=== PATIENT | male | born 1985 | race Caucasian/White ===

== ENCOUNTER 2024-01-19 21:48 | Emergency (ER) | payer SELFPAY ==
[~2024-01-19] VITALS: Ht 180.3 cm; Wt 106.6 kg
[2024-01-19 22:05] VITALS: BP_SYST 159; PULSE 112; RESP 18; TEMP 98.5; O2SAT 97
[2024-01-19 22:36] LABS: BASOPHILS # (AUTO) 0.3 K/uL (0.0-0.2); EOSINOPHILS # (AUTO) 0.1 K/uL (0.0-0.4); EOSINOPHILS % (AUTO) 0.5 % (0.0-4.0); HEMATOCRIT 47.7 % (36-54); HEMOGLOBIN 16.8 g/dL (14.0-18.0); LYMPHOCYTES # (AUTO) 1.5 K/uL (1.0-5.5); LYMPHOCYTES % (AUTO) 13.9 % (20.5-51.5); MEAN CORPUSCULAR HEMOGLOBIN 31 pg (27-31); MEAN CORPUSCULAR HGB CONC 35 % (32-36); MEAN CORPUSCULAR VOLUME 87 fL (79.0-98.0); MONOCYTES # (AUTO) 0.7 K/uL (0.0-1.0); MONOCYTES % (AUTO) 6.1 % (1.7-9.3); NEUTROPHILS # (AUTO) 8.4 K/uL (1.8-7.7); NEUTROPHILS % (AUTO) 76.5 % (40.0-70.0); PLATELET COUNT (AUTO) 254 K/uL (130-430); RED BLOOD CELL COUNT(AUTO) 5.49 MIL/uL (4.2-6.2); RED CELL DISTRIBUTION WIDTH 15.2 % (9.0-15.0)
[2024-01-19 22:47] LABS: CALCIUM 9.5 mg/dL (8.4-11.0); CREATININE 1.33 mg/dL (0.55-1.30); POTASSIUM 5.5 mmol/L (3.5-5.1)
[2024-01-20] MEDS: FAMOTIDINE 20 MG TABLET PO ONE (00:24)
[2024-01-20] MEDS: MAG-AL HYDROX/SIMETH 30 ML UDC PO ONE (00:24)
[2024-01-20 00:40] LABS: BILIRUBIN,URINE 1+ (NEGATIVE); CLARITY/URINE CLEAR (CLEAR); COLOR,URINE YELLOW (YELLOW); GLUCOSE,URINE NEGATIVE (NEGATIVE); KETONES,URINE 1+ (NEGATIVE); LEUKOCYTE ESTERASE ,URINE NEGATIVE (NEGATIVE); NITRITE, URINE NEGATIVE (NEGATIVE); PROTEIN URINE 3+ (NEGATIVE)
[2024-01-20 00:45] LABS: BACTERIA,URINE None Seen /HPF (None Seen); BLOOD, URINE TRACE (NEGATIVE); WBC,URINE 0-3 /HPF (0-3)
[2024-01-20] MEDS: ALBUTEROL SULFATE 0.083% 2.5 MG/3 ML VIAL.NEB INH ONE (02:33)
[2024-01-20] MEDS ORDERED: CALCIUM GLUCONATE 1 GM/10 ML VIAL ONE (02:40)
[2024-01-20] MEDS: CALCIUM GLUCONATE 1 GM in NS 100 ML IV ONE (02:53)
[2024-01-20] MEDS: NACL 0.9% 1,000 ML IV ONE (02:58)
[2024-01-20] MEDS: MORPHINE 4 MG INJ. 4 MG/ML VIAL IVP ONE (03:00)
[2024-01-20] MEDS: ONDANSETRON HCL 4 MG/2 ML VIAL IVP ONE (03:00)
[2024-01-20] MEDS: hydrALAZINE HCL 20 MG/ML VIAL IVP ONE (04:14)
[2024-01-20 04:56] LABS: CALCIUM 8.5 mg/dL (8.4-11.0); CREATININE 1.04 mg/dL (0.55-1.30); POTASSIUM 4.4 mmol/L (3.5-5.1)
[2024-01-20] MEDS: LABETALOL HCL 20 MG/4 ML CARTRIDGE IVP ONE (05:14)
[2024-01-20 05:45] VITALS: BP_SYST 148; PULSE 95; RESP 18; TEMP 98.6; O2SAT 93
== END 2024-01-20 05:45 | disposition home or self-care (01) ==
LOC: SED 21:48
DX: R10.11 Right upper quadrant pain (principal); R10.13 Epigastric pain; R03.0 Elevated blood-pressure reading, without diagnosis of hypertension; R11.0 Nausea; R00.0 Tachycardia, unspecified; F10.90 Alcohol use, unspecified, uncomplicated
CPT/HCPCS: 80048; 81001; 83690; 85025; 36415; 76705; 99285; 93005; 94640; 96365; 96375; J0610; J0360; J2405; J2270; 81000; 81015

== ENCOUNTER 2024-01-26 17:34 | Inpatient (IN) | payer MEDICAID ==
[~2024-01-26] VITALS: Ht 180.3 cm; Wt 106.6 kg
[2024-01-26 18:08] VITALS: BP_SYST 168; PULSE 116; RESP 18; TEMP 98.3; O2SAT 97
[2024-01-26] MEDS: KETOROLAC TROMETHAMINE 60 MG/2 ML VIAL IM ONE (19:36)
[2024-01-26 19:48] LABS: BLOOD, URINE 2+ (NEGATIVE); CLARITY/URINE CLEAR (CLEAR); COLOR,URINE YELLOW (YELLOW); GLUCOSE,URINE NEGATIVE (NEGATIVE); KETONES,URINE NEGATIVE (NEGATIVE); LEUKOCYTE ESTERASE ,URINE NEGATIVE (NEGATIVE); NITRITE, URINE NEGATIVE (NEGATIVE); PROTEIN URINE 3+ (NEGATIVE)
[2024-01-26 20:03] LABS: BILIRUBIN,URINE 1+ (NEGATIVE)
[2024-01-26 20:06] LABS: BACTERIA,URINE FEW /HPF (None Seen); RBC,URINE 0-3 /HPF (0-3); WBC,URINE 0-3 /HPF (0-3)
[2024-01-26 20:07] LABS: HYALINE CASTS, URINE 0-10 /LPF (None Seen); MUCUS,URINE None Seen /LPF (None Seen)
[2024-01-26] MEDS: LABETALOL HCL 20 MG/4 ML CARTRIDGE IVP ONE (20:32)
[2024-01-26] MEDS: METOPROLOL TARTRATE 25 MG TABLET PO ONE (20:32)
[2024-01-26] MEDS: KETOROLAC TROMETHAMINE 15 MG VIAL IVP ONE (20:52)
[2024-01-26 21:13] LABS: BASOPHILS # (AUTO) 0.1 K/uL (0.0-0.2); BASOPHILS % (AUTO) 0.7 % (0.0-2.0); EOSINOPHILS % (AUTO) 0.5 % (0.0-4.0); HEMATOCRIT 46.6 % (36-54); HEMOGLOBIN 15.8 g/dL (14.0-18.0); LYMPHOCYTES # (AUTO) 1.7 K/uL (1.0-5.5); LYMPHOCYTES % (AUTO) 18.3 % (20.5-51.5); MEAN CORPUSCULAR HEMOGLOBIN 30 pg (27-31); MEAN CORPUSCULAR HGB CONC 34 % (32-36); MEAN CORPUSCULAR VOLUME 87 fL (79.0-98.0); MONOCYTES # (AUTO) 0.5 K/uL (0.0-1.0); MONOCYTES % (AUTO) 5.9 % (1.7-9.3); NEUTROPHILS # (AUTO) 6.9 K/uL (1.8-7.7); NEUTROPHILS % (AUTO) 74.6 % (40.0-70.0); PLATELET COUNT (AUTO) 268 K/uL (130-430); RED BLOOD CELL COUNT(AUTO) 5.34 MIL/uL (4.2-6.2); RED CELL DISTRIBUTION WIDTH 15.3 % (9.0-15.0); WHITE BLOOD COUNT (AUTO) 9.3 K/uL (4.8-10.8)
[2024-01-26 21:42] LABS: ANION GAP 12 (5-15); CALCIUM 8.5 mg/dL (8.4-11.0); CARBON DIOXIDE 22 mmol/L (23-29); CHLORIDE 105 mmol/L (98-107); CREATININE 1.37 mg/dL (0.55-1.30); GFR AFRICAN AMERICAN 74 mL/min (>90); GLUCOSE 129 mg/dL (74-106); POTASSIUM 4.5 mmol/L (3.5-5.1); SODIUM SERUM 139 mmol/L (136-145); UREA NITROGEN, BLOOD 24 mg/dL (8-21)
[2024-01-26 21:45] LABS: GFR NON AFRICAN-AMERICAN 61 mL/min (>90)
[2024-01-26] MEDS ORDERED: ONDANSETRON HCL 4 MG/2 ML VIAL IVP PRN (22:15)
[2024-01-26] MEDS ORDERED: MAGNESIUM SULFATE 50 ML IV PRN (22:15)
[2024-01-26] MEDS ORDERED: MORPHINE 2 MG/ML INJ. SYRINGE IVP PRN ×2 (22:15)
[2024-01-26] MEDS: NACL 0.9% 1,000 ML IV SCH (22:15)
[2024-01-26] MEDS ORDERED: MUPIROCIN 2% TOPICAL OINTMENT 22 GM NS PRN (22:15)
[2024-01-26] MEDS ORDERED: DOCUSATE SODIUM 100 MG CAPSULE PO PRN (22:15)
[2024-01-26] MEDS ORDERED: POTASSIUM CHLORIDE 20 MEQ TABLET.ER PO PRN (22:15)
[2024-01-26 22:16] LABS: BARBITURATE, URINE NEGATIVE (NEG <=200); BENZODIAZEPINE, URINE NEGATIVE (NEG <=150); CANNABINOID, URINE NEGATIVE (NEG <=50); COCAINE, URINE NEGATIVE (NEG <=150); METHAMPHETAMINES SCREEN,URINE NEGATIVE (NEG <=500); OPIATE, URINE NEGATIVE (NEG <=100); PHENCYCLIDINE SCREEN,URINE NEGATIVE (NEG <=25); UR TRICYCLIC ANTIDEPRESSANTS NEGATIVE (NEG <=300); URINE AMPHETAMINE NEGATIVE (NEG <=500); URINE METHADONE NEGATIVE (NEG <=200); URINE OXYCODONE SCREEN NEGATIVE (NEG <=100)
[2024-01-26] MEDS: ACETAMINOPHEN 500 MG TABLET PO ONE (22:20)
[2024-01-26] MEDS: ASPIRIN 81 MG TABLET(ECOTRIN) PO ONE (22:20)
[2024-01-26] MEDS: ENOXAPARIN SODIUM 100 MG/ML SYRINGE SUBCUT ONE (22:23)
[2024-01-26] MEDS: NITROGLYCERIN 1 INCH (GM) OINT. TP ONE (22:24)
[2024-01-26] MEDS: FUROSEMIDE 40 MG/4 ML VIAL IVP ONE (22:25)
[2024-01-26] MEDS: NIFEdipine 30 MG TAB.ER.24 PO SCH (23:07)
[2024-01-26] MEDS: LORazepam 2 MG/ML VIAL IVP PRN (23:17)
[2024-01-27] VITALS (8 sets, daily range): BP systolic 120–165; PULSE 75–90; RESP 17–18; TEMP 96.4–97.9; O2SAT 95–99
[2024-01-27] MEDS: cloNIDine HCL 0.2 MG TABLET PO PRN (01:43)
[2024-01-27 05:26] LABS: BASOPHILS % (AUTO) 0.6 % (0.0-2.0); EOSINOPHILS % (AUTO) 0.3 % (0.0-4.0); HEMATOCRIT 43.8 % (36-54); HEMOGLOBIN 15.4 g/dL (14.0-18.0); LYMPHOCYTES # (AUTO) 1.9 K/uL (1.0-5.5); MEAN CORPUSCULAR HEMOGLOBIN 31 pg (27-31); MEAN CORPUSCULAR HGB CONC 35 % (32-36); MEAN CORPUSCULAR VOLUME 88 fL (79.0-98.0); MONOCYTES # (AUTO) 0.5 K/uL (0.0-1.0); MONOCYTES % (AUTO) 7.2 % (1.7-9.3); NEUTROPHILS # (AUTO) 4.6 K/uL (1.8-7.7); NEUTROPHILS % (AUTO) 64.9 % (40.0-70.0); PLATELET COUNT (AUTO) 228 K/uL (130-430); RED CELL DISTRIBUTION WIDTH 15.2 % (9.0-15.0); WHITE BLOOD COUNT (AUTO) 7.1 K/uL (4.8-10.8)
[2024-01-27 05:55] LABS: CALCIUM 8.4 mg/dL (8.4-11.0); CREATININE 1.21 mg/dL (0.55-1.30); POTASSIUM 4.3 mmol/L (3.5-5.1)
[2024-01-27 07:48] LABS: ALBUMIN 2.9 g/dL (3.4-4.8); BILIRUBIN,DIRECT 0.3 mg/dL (0.0-0.3); THYROID STIMULATING HORMONE 1.59 uIu/mL (0.34-4.82); TOTAL BILIRUBIN 1.5 mg/dL (0.0-1.0); TOTAL PROTEIN, SERUM 6.6 g/dL (6.4-8.3)
[2024-01-27] MEDS ORDERED: ENOXAPARIN SODIUM 100 MG/ML SYRINGE SUBCUT SCH (09:00)
[2024-01-27] MEDS: METOPROLOL TARTRATE 25 MG TABLET PO SCH (09:31)
[2024-01-27] MEDS: FUROSEMIDE 40 MG/4 ML VIAL IVP SCH (09:55)
[2024-01-27] MEDS: hydrALAZINE HCL 25 MG TABLET PO ONE (11:38)
[2024-01-27] MEDS: SACUBITRIL/VALSARTAN 24 MG-26 MG 1 TABLET PO ONE (11:39)
[2024-01-27] MEDS: ACETAMINOPHEN 325 MG TABLET PO PRN (14:44)
[2024-01-27] MEDS ORDERED: methocarbamoL 750 MG TABLET PO ONE (15:30)
[2024-01-27] MEDS ORDERED: HYDROcodone/ACETAMIN 10-325 MG TAB PO PRN (16:15)
[2024-01-27] MEDS ORDERED: HYDROcodone/ACETAMIN 5-325 MG TAB (NORCO/ VICODIN) PO PRN (16:15)
[2024-01-27] MEDS: methocarbamoL 500 MG TABLET PO ONE (16:24)
[2024-01-27] MEDS: hydrALAZINE HCL 25 MG TABLET PO SCH (20:55)
[2024-01-27] MEDS: SACUBITRIL/VALSARTAN 24 MG-26 MG 1 TABLET PO SCH (20:55)
[2024-01-27] MEDS: CARVEDILOL 3.125 MG TABLET (COREG) PO SCH (20:56)
[2024-01-27] MEDS: methocarbamoL 500 MG TABLET PO SCH (20:56)
[2024-01-27] MEDS ORDERED: *LOVENOX 1MG/KG Q12H/PHARMACY XX PRN (22:15)
[2024-01-28 01:01] VITALS: BP_SYST 112; PULSE 89; RESP 18; TEMP 98.3; O2SAT 97
[2024-01-28 06:18] LABS: BASOPHILS # (AUTO) 0.1 K/uL (0.0-0.2); EOSINOPHILS # (AUTO) 0.2 K/uL (0.0-0.4); EOSINOPHILS % (AUTO) 1.9 % (0.0-4.0); HEMATOCRIT 53.4 % (36-54); HEMOGLOBIN 18.5 g/dL (14.0-18.0); LYMPHOCYTES # (AUTO) 2.3 K/uL (1.0-5.5); LYMPHOCYTES % (AUTO) 26.4 % (20.5-51.5); MEAN CORPUSCULAR HEMOGLOBIN 30 pg (27-31); MEAN CORPUSCULAR HGB CONC 35 % (32-36); MEAN CORPUSCULAR VOLUME 87 fL (79.0-98.0); MONOCYTES # (AUTO) 0.8 K/uL (0.0-1.0); MONOCYTES % (AUTO) 8.9 % (1.7-9.3); NEUTROPHILS # (AUTO) 5.5 K/uL (1.8-7.7); NEUTROPHILS % (AUTO) 61.8 % (40.0-70.0); PLATELET COUNT (AUTO) 261 K/uL (130-430); RED BLOOD CELL COUNT(AUTO) 6.11 MIL/uL (4.2-6.2); WHITE BLOOD COUNT (AUTO) 8.9 K/uL (4.8-10.8)
[2024-01-28 06:49] LABS: CALCIUM 8.1 mg/dL (8.4-11.0); CREATININE 0.93 mg/dL (0.55-1.30); POTASSIUM 3.6 mmol/L (3.5-5.1)
[2024-01-28 08:26] VITALS: O2SAT 97
[2024-01-28 08:36] VITALS: BP_SYST 137; PULSE 55; RESP 12; TEMP 97.1; O2SAT 99
[2024-01-28] MEDS: ENOXAPARIN SODIUM 40 MG/0.4 ML SYRINGE SUBCUT SCH (09:30)
[2024-01-28] MEDS: ASPIRIN 81 MG TAB.CHEW PO SCH (09:31)
[2024-01-28] MEDS: methocarbamoL 500 MG TABLET PO SCH (09:32)
[2024-01-28] MEDS: CARVEDILOL 12.5 MG TABLET (COREG) PO SCH (09:32)
[2024-01-28 11:16] VITALS: BP_SYST 123; PULSE 90; RESP 16; TEMP 97.7; O2SAT 97
[2024-01-28 15:22] VITALS: BP_SYST 127; PULSE 86; RESP 16; TEMP 97.1; O2SAT 100
[2024-01-28 20:00] VITALS: BP_SYST 133; PULSE 86; RESP 18; TEMP 97.8; O2SAT 96; O2SAT 97
[2024-01-28] MEDS: hydrALAZINE HCL 25 MG TABLET PO SCH (20:45)
[2024-01-28] MEDS: ZOLPIDEM TARTRATE 5 MG TABLET PO PRN (20:49)
[2024-01-29] VITALS: BP_SYST 126; PULSE 86; RESP 18; TEMP 98.1; O2SAT 96
[2024-01-29 05:36] LABS: BASOPHILS % (AUTO) 0.6 % (0.0-2.0); EOSINOPHILS # (AUTO) 0.1 K/uL (0.0-0.4); EOSINOPHILS % (AUTO) 1.7 % (0.0-4.0); HEMATOCRIT 55.4 % (36-54); HEMOGLOBIN 19.5 g/dL (14.0-18.0); LYMPHOCYTES # (AUTO) 2.2 K/uL (1.0-5.5); LYMPHOCYTES % (AUTO) 26.9 % (20.5-51.5); MEAN CORPUSCULAR HEMOGLOBIN 31 pg (27-31); MEAN CORPUSCULAR HGB CONC 35 % (32-36); MEAN CORPUSCULAR VOLUME 87 fL (79.0-98.0); MONOCYTES # (AUTO) 0.9 K/uL (0.0-1.0); MONOCYTES % (AUTO) 10.9 % (1.7-9.3); NEUTROPHILS % (AUTO) 59.9 % (40.0-70.0); PLATELET COUNT (AUTO) 260 K/uL (130-430); RED BLOOD CELL COUNT(AUTO) 6.37 MIL/uL (4.2-6.2); RED CELL DISTRIBUTION WIDTH 15.2 % (9.0-15.0); WHITE BLOOD COUNT (AUTO) 8.3 K/uL (4.8-10.8)
[2024-01-29 06:00] LABS: CALCIUM 8.7 mg/dL (8.4-11.0); CREATININE 1.1 mg/dL (0.55-1.30); TOTAL BILIRUBIN 2.2 mg/dL (0.0-1.0); TOTAL PROTEIN, SERUM 7.2 g/dL (6.4-8.3)
[2024-01-29 07:56] VITALS: BP_SYST 138; PULSE 89; RESP 20; TEMP 97.6; O2SAT 95
[2024-01-29 08:04] VITALS: O2SAT 99
[2024-01-29] MEDS: FUROSEMIDE 40 MG TABLET PO SCH (08:45)
[2024-01-29] MEDS ORDERED: CARV12.548 PO (10:49)
[2024-01-29] MEDS ORDERED: FURO-149 PO (10:49)
[2024-01-29] MEDS ORDERED: ASPI-1393 PO (10:49)
[2024-01-29] MEDS ORDERED: SACU1TAB PO (10:49)
[2024-01-29 11:12] VITALS: BP_SYST 114; PULSE 85; RESP 16; TEMP 97.6; O2SAT 97
[2024-01-29 13:09] VITALS: BP_SYST 121; PULSE 72; RESP 19; TEMP 97.8; O2SAT 99
== END 2024-01-29 13:45 | disposition home or self-care (01) | DRG 469 ==
LOC: SED 17:34 → STU 22:06
PROVIDERS: ADMIT General Practice; ATTEND General Practice
DX: N17.9 Acute kidney failure, unspecified (principal); I50.21 Acute systolic (congestive) heart failure; I42.0 Dilated cardiomyopathy; J81.1 Chronic pulmonary edema; I16.0 Hypertensive urgency; I11.0 Hypertensive heart disease with heart failure; E66.9 Obesity, unspecified; Z82.49 Family history of ischemic heart disease and other diseases of the circulatory system; Z68.32 Body mass index [BMI] 32.0-32.9, adult
CPT/HCPCS: 36415; 71045; 76770; 80048; 80053; 80061; 80076; 80307; 81000; 81001; 81015; 83037; 83735; 83880; 84443; 84484; 85025; 93005; 93306; 96372; 96374; 96375; 99291; 99292; G0378; J1650; J1885; J1940; J2060